=== PATIENT | female | born 1960 | race Caucasian/White ===

== ENCOUNTER → 2017-10-07 | Outpatient (CLI) | payer BC ==
[~2017-10-07] MED LIST: HYDACE5 PO
[2017-10-09 12:11] LABS: HPV Genotype 16 Not Detected (NOTDET); HPV Genotype 18 Not Detected (NOTDET)
[2017-10-12 09:48] LABS: HPV High Risk Other Detected (NOTDET)
== END ==
LOC: LAB 09:36
PROVIDERS: Obstetrics & Gynecology
DX: Z01.419 Encounter for gynecological examination (general) (routine) without abnormal findings (principal)
CPT/HCPCS: 87624; G0123

== ENCOUNTER → 2018-10-13 | Outpatient (CLI) | payer BC ==
[2018-10-15 16:07] LABS: HPV 16 Negative (Negative); HPV 18 Negative (Negative); HPV OTHER HR TYPES Positive (Negative)
== END | disposition home or self-care (01) ==
LOC: LAB SHORT 09:43 → LAB 09:43
PROVIDERS: Obstetrics & Gynecology
DX: Z01.419 Encounter for gynecological examination (general) (routine) without abnormal findings (principal)
CPT/HCPCS: 87624; G0123

== ENCOUNTER → 2020-08-07 | Outpatient (CLI) | payer BC ==
[2020-08-08 16:07] LABS: HPV 16 Positive (Negative); HPV 18 Negative (Negative); HPV OTHER HR TYPES Positive (Negative)
== END | disposition home or self-care (01) ==
LOC: LAB 07:25 → LAB SHORT 07:25
PROVIDERS: Student in an Organized Health Care Education/Training Program
DX: Z12.4 Encounter for screening for malignant neoplasm of cervix (principal)
CPT/HCPCS: 87624; 87625; G0145

== ENCOUNTER → 2020-09-28 | Outpatient (CLI) | payer BC | END | disposition home or self-care (01) | LOC: PLD 14:04 → LAB SHORT 14:04 | DX: N72 Inflammatory disease of cervix uteri (principal) | CPT/HCPCS: 88305 ==

== ENCOUNTER → 2021-08-07 | Outpatient (CLI) | payer BC ==
[2021-08-10 12:09] LABS: HPV 16 Negative (Negative); HPV 18 Negative (Negative); HPV OTHER HR TYPES Positive (Negative)
== END ==
LOC: LAB 07:57 → LAB SHORT 07:57
PROVIDERS: Student in an Organized Health Care Education/Training Program
DX: R87.810 Cervical high risk human papillomavirus (HPV) DNA test positive (principal); Z98.890 Other specified postprocedural states
CPT/HCPCS: 87624; 87625; G0145

== ENCOUNTER → 2023-09-29 | Outpatient (CLI) | payer BC ==
[~2023-09-29] MED LIST changes: +ELDERTONIC LIQ473 ML; +IRON18 MG; +MULVITA; +VIT1CAPS12
[2023-10-03 17:47] LABS: HPV GENOTYPE 16 Not Detected; HPV GENOTYPE 18 Not Detected; HPV HIGH RISK Not Detected; HPV SOURCE Vaginal
== END ==
LOC: LAB 10:30 → LAB SHORT 10:30
PROVIDERS: Obstetrics & Gynecology
DX: R87.810 Cervical high risk human papillomavirus (HPV) DNA test positive (principal)
CPT/HCPCS: 87624; G0123